=== PATIENT | male | born 1990 ===

== ENCOUNTER 2017-08-05 07:07 | Emergency (ER) | payer OTHER ==
[2017-08-05 07:33] VITALS: RESP 18
[2017-08-05] MEDS ORDERED: Sodium Chloride 0.9% 1,000 ML IV STA (08:05)
--- NOTE | 2017-08-05 08:16 | ED PDOC ---
HPI: General Adult Time Seen by Provider: 08/05/17 07:23 Chief Complaint (Nursing): Flu-like Symptoms Chief Complaint (Provider): Flu-like symptoms and hand pain History Per: Patient History/Exam Limitations: no limitations Onset/Duration Of Symptoms: Days (2 days ago) Current Symptoms Are (Timing): Still Present Additional Complaint(s): 26 y/o male presents to the ED complaining of subjective fever, body aches, sore throat, cough , and headache, onset of 2 days ago. Patient also complains of right hand pain after a door fell on his hand at work 2 days ago. Of note, patient took Motrin earlier this morning. Past Medical History Reviewed: Historical Data, Nursing Documentation, Vital Signs Vital Signs: Last Vital Signs Temp 98.2 F 08/05/17 10:23 Pulse 85 08/05/17 10:23 Resp 18 08/05/17 10:23 BP 126/79 08/05/17 10:23 Pulse Ox 96 08/05/17 10:23 - Medical History PMH: No Chronic Diseases - Surgical History Surgical History: No Surg Hx - Family History Family History: States: Unknown Family Hx - Social History Current smoker - smoking cessation education provided: No Ex-Smoker (has not smoked in the last 12 months): No Alcohol: None Drugs: Denies - Home Medications Home Medications: Ambulatory Orders Medication Instructions Recorded Naproxen [Naprosyn] 500 mg PO BID PRN #15 tablet 08/05/17 Oseltamivir Phosphate [Tamiflu] 75 mg PO BID #9 capsule 08/05/17 - Allergies Allergies/Adverse Reactions: Allergies Allergy/AdvReac Type Severity Reaction Status Date / Time No Known Allergies Allergy Verified 08/05/17 07:31 Review of Systems ROS Statement: Except As Marked, All Systems Reviewed And Found Negative Constitutional: Positive for: Fever, Other (body aches) ENT: Positive for: Throat Pain Respiratory: Positive for: Cough Musculoskeletal: Positive for: Hand Pain (right ) Neurological: Positive for: Headache Physical Exam - Reviewed Nursing Documentation Reviewed: Yes Vital Signs Reviewed: Yes - Physical Exam Appears: Positive for: Non-toxic, No Acute Distress Head Exam: Positive for: ATRAUMATIC Skin: Positive for: Normal Color, Warm Eye Exam: Positive for: Normal appearance, EOMI, PERRL ENT: Positive for: Pharynx Is (erythematous), Other (uvula midline). Negative for: Tonsillar Exudate Neck: Positive for: Normal Cardiovascular/Chest: Positive for: Regular Rate, Rhythm, Tachycardia. Negative for: Murmur Respiratory: Positive for: Normal Breath Sounds. Negative for: Respiratory Distress Back: Positive for: Normal Inspection Extremity: Positive for: Normal ROM, Swelling (right hand edema posterior mid hand ), Other (no wrist pain, no abrasions, no laceration) Neurologic/Psych: Positive for: Alert, Oriented. Negative for: Motor/Sensory Deficits - Laboratory Results Result Diagrams: 08/05/17 08:10 08/05/17 08:10 - ECG O2 Sat by Pulse Oximetry: 99 (RA) Pulse Ox Interpretation: Normal - Radiology X-Ray: Interpreted by Me, Viewed By Me Medical Decision Making Medical Decision Making: Time: --08:05 Impression: --Flu and hand injury Plan: --VBG Shock panel --Labs --Chest Xpray --Acetaminophen 650 mg pO --IV Fluids --blood Culture --Right hand X-ray --Right Wrist x-ray --Influenza A B --Rapid Strep Reassess --09:36 X-ray viewed and interpreted by the provider and shows hand fracture. Hand splint placed. Scribe Attestation: Documented by John Montana acting as a scribe for Ángela Rapp MD. Disposition - Clinical Impression Clinical Impression: Influenza A, Fx metacarpal - Disposition Referrals: [facility]AC[facility] [Outside] Laurie Wright MD [Staff Provider] - Disposition: Routine/Home Disposition Time: 09:41 Condition: STABLE Prescriptions: Naproxen [Naprosyn] 500 mg PO BID PRN #15 tablet PRN Reason: Pain, Moderate (4-7) Oseltamivir Phosphate [Tamiflu] 75 mg PO BID #9 capsule Instructions: Hand Fracture (ED), Influenza (ED) Forms: [facility] ([place]ian), [facility] ED School/Work Excuse Print Language: [place]
[2017-08-05 08:46] LABS: BASO % 0.2 % (0.0-2.0); EOS % 0.1 % (0.0-4.0); HEMOGLOBIN 16.7 g/dL (12.0-18.0); LYMPH # 0.6 K/uL (1.0-4.3); LYMPH % 6.5 % (20.0-40.0); MEAN CELL VOLUME 91.9 fl (80.0-94.0); MEAN CORPUSCULAR HEMOGLOBIN 32.1 pg (27.0-31.0); MEAN CORPUSCULAR HGB CONC 34.9 g/dL (33.0-37.0); MEAN PLATELET VOLUME 8.5 fl (7.2-11.7); MONO # 1.5 K/uL (0.0-0.8); MONO % 15.1 % (0.0-10.0); NEUT # 7.7 K/uL (1.8-7.0); NEUT % 78.1 % (50.0-75.0); NRBC % 0.1 % (0.0-0.0); PLATELET COUNT 223 K/uL (130-400); RBC 5.21 Mil/uL (4.40-5.90); RED CELL DISTRIBUTION WIDTH 12.7 % (11.5-14.5); WHITE BLOOD COUNT 9.9 K/uL (4.8-10.8)
[2017-08-05 08:58] LABS: ALB/GLOB RATIO 1.1 (1.0-2.1); ALT/SGPT 68 U/L (21-72); AST/SGOT 34 U/L (17-59); BLOOD UREA NITROGEN 12 mg/dl (9-20); CALCIUM 9.2 mg/dL (8.4-10.2); GFR AFRICAN-AMERICAN > 60; GFR NON-AFRICAN AMERICAN > 60
[2017-08-05 10:25] VITALS: BP 126/79; PULSE 85; TEMP 98.2
--- NOTE | 2017-08-05 12:27 | RAD ---
HISTORY: Cough COMPARISON: No prior. TECHNIQUE: Chest PA and lateral FINDINGS: LUNGS: No active pulmonary disease. PLEURA: No significant pleural effusion identified. No pneumothorax apparent. CARDIOVASCULAR: Normal. OSSEOUS STRUCTURES: No significant abnormalities. VISUALIZED UPPER ABDOMEN: Normal. OTHER FINDINGS: None. IMPRESSION: No acute cardiopulmonary disease appreciated.
[2017-08-05 12:28] LABS: BANDS 1 % (0-2); BASOPHIL 1 % (0-2); LYMPHOCYTE 8 % (20-50); MONOCYTE 13 % (0-10); NEUTROPHIL 77 % (42-75); TOTAL CELLS COUNTED 100
--- NOTE | 2017-08-05 12:28 | RAD ---
PROCEDURE: Right Hand Radiographs. HISTORY: Mid hand injury COMPARISON: None. FINDINGS: BONES: An impacted fracture of the base of the 4th metacarpal bone is appreciated without dislocation. Is this may be articular. CT may be useful, or MRI for further characterization. No additional fracture identified throughout the remainder of the right hand on acute basis. No destructive bony lesion identified. JOINTS: Normal. No osteoarthritic changes. SOFT TISSUES: Local soft tissue edema seen relative to the 4th metacarpal fracture site. OTHER FINDINGS: None. IMPRESSION: Impacted fracture proximal right 4th metacarpal bone, potentially articular. No dislocation.
[2017-08-05 12:29] LABS: PLATELET ESTIMATE NORMAL (NORMAL)
--- NOTE | 2017-08-05 12:31 | RAD ---
PROCEDURE: Right Wrist Radiographs. HISTORY: Mid hand injury COMPARISON: None. FINDINGS: BONES: The carpal bones are intact without definite fracture. However, there is a fracture of the base of the 4th metacarpal bone right hand which may be articular. JOINTS: Normal. No dislocation. SOFT TISSUES: Soft edema seen local to the 4th metacarpal fracture site. OTHER FINDINGS: None. IMPRESSION: Right Fourth metacarpal fracture without dislocation. Carpal bones appear intact however the 4th metacarpal fracture may be articular.
[2017-08-05 13:29] LABS: VENOUS BLOOD GAS BASE EXCESS 0.7 mmol/L (0.0-2.0); VENOUS BLOOD GAS PCO2 43 mmHg (40-60); VENOUS BLOOD GAS PO2 73 mm/Hg (30-55); VENOUS BLOOD PH 7.39 (7.32-7.43)
[2017-08-06 16:28] VITALS: O2SAT 99
== END 2017-08-05 10:42 | disposition home or self-care (01) ==
LOC: H.ER 07:07
DX: S62.201A Unspecified fracture of first metacarpal bone, right hand, initial encounter for closed fracture (principal); W22.8XXA Striking against or struck by other objects, initial encounter; Y99.0 Civilian activity done for income or pay; J11.1 Influenza due to unidentified influenza virus with other respiratory manifestations
CPT/HCPCS: 29125; 71046; 73110; 73130; 80053; 82803; 85025; 87040; 87070; 87430; 87804; 96360; 99283; J7040